=== PATIENT | male | born 1940 | race Caucasian/White ===

== ENCOUNTER 2018-02-05 19:45 | Emergency (ER) | payer OTHER ==
[2018-02-05] MEDS ORDERED: NA CHLORIDE 0.9% 1,000 ML ONE (21:56)
[2018-02-05] MEDS ORDERED: FAMOTIDINE 20 MG/2 ML VIAL IV ONE (21:56)
[2018-02-05] MEDS ORDERED: ONDANSETRON 4 MG/2 ML VIAL ONE (21:56)
[2018-02-05 22:00] LABS: Absolute Lymphocytes (CBC) 0.1 K/uL (0.7-4.9); Absolute Monocytes 0.5 K/uL (0.1-1.3); Basophils % 0.3 % (0-1.3); Eosinophils % 0.1 % (0-4.4); Hematocrit 43.1 % (39.6-49.0); Lymphocytes % 1.4 % (15.3-44.8); MCH 32.6 pg (27.0-35.0); MCV 95.7 fL (80-100); MPV 8.1 fL (7.6-11.3); Monocytes % 6.5 % (3.3-12.3)
[2018-02-05 22:16] LABS: Albumin 3.8 g/dL (3.4-5.0); Bilirubin Direct 0.3 mg/dL (0-0.2); Bilirubin Total 0.8 mg/dL (0.2-1.0); Potassium 4.3 mmol/L (3.5-5.1); Protein, Total 7.3 g/dL (6.4-8.2)
[2018-02-05 23:01] LABS: Blood Morphology Comment NOT SEEN (NOT SEEN); Platelet Estimate ADEQ; Urine White Blood Cell Casts OK
--- NOTE | 2018-02-05 23:51 | ER ---
Nurse's Notes [facility] Name: Monty Og Age: 77 yrs Sex: Male : 1940 Arrival Date: 02/05/2018 Time: 19:47 Bed 8 Private MD: Diagnosis: Acute Vomiting and Diarrhea Presentation: 02/05 19:52 Presenting complaint: Patient states: Vomiting, diarrhea, fever since 1200 today. TMax aj1 99.9. Denies abdominal pain. Reports body aches, nausea. Transition of care: patient was not received from another setting of care. Onset of symptoms was February 05, 2018 at 12:00. Risk Assessment: Do you want to hurt yourself or someone else? Patient reports no desire to harm self or others. Initial Sepsis Screen: Does the patient meet any 2 criteria? No. Patient's initial sepsis screen is negative. Does the patient have a suspected source of infection? No. Patient's initial sepsis screen is negative. Care prior to arrival: None. 19:52 Method Of Arrival: Ambulatory aj1 19:52 Acuity: JACKSON 3 aj1 Triage Assessment: 19:56 General: Appears in no apparent distress. comfortable, Behavior is calm, cooperative, aj1 appropriate for age. Pain: Pain currently is 2 out of 10 on a pain scale. Neuro: Level of Consciousness is awake, alert, obeys commands. Cardiovascular: Patient's skin is warm and dry. Respiratory: Airway is patent Respiratory effort is even, unlabored, Respiratory pattern is regular, symmetrical. GI: Reports diarrhea, nausea, vomiting, Patient currently denies abdominal pain. Historical: - Allergies: 19:56 Bactrim; aj1 - Home Meds: 19:56 Pravachol 20 mg Oral tab 1 tab once daily [Active]; losartan 25 mg oral tab 1 tab once aj1 daily [Active]; - PMHx: 19:56 Hypertension; Hyperlipidemia; aj1 - PSHx: 19:56 Appendectomy; colostomy repair; Hernia repair; Tonsillectomy; shoulder surgery; aj1 - Immunization history:: Flu vaccine is not up to date. - Social history:: Smoking status: Patient/guardian denies using tobacco. - Ebola Screening: : Patient denies travel to an Ebola-affected area in the 21 days before illness onset. - Family history:: not pertinent. - Hospitalizations: : No recent hospitalization is reported. Screenin:37 Abuse screen: Denies threats or abuse. Denies injuries from another. Nutritional ak1 screening: No deficits noted. Tuberculosis screening: No symptoms or risk factors identified. Fall Risk None identified. Assessment: 20:42 General: Appears in no apparent distress. Behavior is calm, cooperative. Neuro: No ak1 deficits noted. Cardiovascular: No deficits noted. Respiratory: No deficits noted. GI: Abdomen is flat, Bowel sounds present X 4 quads. Abd is soft and non tender. : No signs and/or symptoms were reported regarding the genitourinary system. EENT: No signs and/or symptoms were reported regarding the EENT system. Derm: No signs and/or symptoms reported regarding the dermatologic system. Musculoskeletal: No signs and/or symptoms reported regarding the musculoskeletal system. 20:42 Reassessment: pt c/o nausea, diarrhea and chills since this morning. . ak1 Vital Signs: 19:56 BP 138 / 81; Pulse 85; Resp 18; Temp 99.9; Pulse Ox 95% on R/A; Weight 88.45 kg (R); aj1 Height 6 ft. 0 in. (182.88 cm) (R); Pain 2/10; 20:37 BP 154 / 77; Pulse 86; Resp 18; Temp 98.8(O); Pulse Ox 94% on R/A; ak1 22:10 BP 134 / 69; Pulse 74; Resp 18; Pulse Ox 93% on R/A; ak1 23:33 BP 129 / 65; Pulse 73; Resp 16; Temp 98.6(O); Pulse Ox 96% on R/A; ak1 19:56 Body Mass Index 26.45 (88.45 kg, 182.88 cm) aj1 ED Course: 19:47 Patient arrived in ED. al2 19:54 Triage completed. aj1 19:56 Arm band placed on Patient placed in an exam room. aj1 20:30 Inga Del Angel, RN is Primary Nurse. ak1 20:37 Patient has correct armband on for positive identification. Bed in low position. Call ak1 light in reach. Side rails up X 1. Adult w/ patient. Pulse ox on. NIBP on. 21:05 Omer Marinelli MD is Attending Physician. wa 21:46 Flu Sent. ak1 22:02 Inserted saline lock: 20 gauge in right antecubital area, using aseptic technique. ak1 ,using aseptic technique. placed by bryon Blood collected. 23:56 No provider procedures requiring assistance completed. IV discontinued, intact, ak1 bleeding controlled, No redness/swelling at site. Pressure dressing applied. Administered Medications: 21:56 Drug: Zofran 4 mg Route: IVP; Site: right antecubital; ak1 22:06 Follow up: Response: No adverse reaction ak1 21:57 Drug: Pepcid 20 mg Route: IVP; Site: right antecubital; ak1 22:06 Follow up: Response: No adverse reaction ak1 22:06 Drug: NS 0.9% 1000 ml Route: IV; Rate: 1 bolus; Site: right antecubital; ak1 23:48 Follow up: IV Status: Completed infusion ak1 Outcome: 23:50 Discharge ordered by . stanford 23:56 Discharged to home ambulatory, with family. ak1 23:56 Condition: good 23:56 Discharge instructions given to patient, family, Instructed on discharge instructions, follow up and referral plans. no drinking with medication, no driving heavy equipment, medication usage, Demonstrated understanding of instructions, follow-up care, medications, Prescriptions given X 2. 23:59 Patient left the ED. ak1 Signatures: Joanne Zacarias RN RN [email or web address] Inga Del Angel RN RN ak1 Omer Marinelli MD MD wa Love, Chelly mancia
--- NOTE | 2018-02-05 23:51 | EDPHYS ---
Physician Documentation [facility] Name: Monty Og Age: 77 yrs Sex: Male : 1940 Arrival Date: 02/05/2018 Time: 19:47 Bed 8 Private MD: ED Physician Omer Marinelli HPI: 02/06 00:21 This 77 yrs old Male presents to ER via Ambulatory with complaints of Flu wa Symptoms. 00:21 The patient presents to the emergency department with nausea, vomiting, diarrhea. wa Onset: The symptoms/episode began/occurred today. Possible causes: sick contacts, by family, grandson. The symptoms are aggravated by nothing. The symptoms are alleviated by nothing. Associated signs and symptoms: Pertinent positives: diarrhea, nausea, vomiting, Pertinent negatives: abdominal pain. Severity of symptoms: At their worst the symptoms were moderate in the emergency department the symptoms are unchanged. The patient has not experienced similar symptoms in the past. The patient has not recently seen a physician. pt states several family members have had same within this past week. denies abd pain. states stool is brown and non-bloody. denies blood in vomit. Historical: - Allergies: 02/05 19:56 Bactrim; aj1 - Home Meds: 19:56 Pravachol 20 mg Oral tab 1 tab once daily [Active]; losartan 25 mg oral tab 1 tab once aj1 daily [Active]; - PMHx: 19:56 Hypertension; Hyperlipidemia; aj1 - PSHx: 19:56 Appendectomy; colostomy repair; Hernia repair; Tonsillectomy; shoulder surgery; aj1 - Immunization history:: Flu vaccine is not up to date. - Social history:: Smoking status: Patient/guardian denies using tobacco. - Ebola Screening: : Patient denies travel to an Ebola-affected area in the 21 days before illness onset. - Family history:: not pertinent. - Hospitalizations: : No recent hospitalization is reported. ROS: 02/06 00:23 Constitutional: Negative for fever, chills, and weight loss, Eyes: Negative for injury, wa pain, redness, and discharge, ENT: Negative for injury, pain, and discharge, Neck: Negative for injury, pain, and swelling, Cardiovascular: Negative for chest pain, palpitations, and edema, Respiratory: Negative for shortness of breath, cough, wheezing, and pleuritic chest pain, Back: Negative for injury and pain, : Negative for injury, bleeding, discharge, and swelling, MS/Extremity: Negative for injury and deformity, Skin: Negative for injury, rash, and discoloration, Neuro: Negative for headache, weakness, numbness, tingling, and seizure, Psych: Negative for depression, anxiety, suicide ideation, homicidal ideation, and hallucinations. Abdomen/GI: Positive for nausea, vomiting, and diarrhea, Negative for abdominal pain. All other systems are negative. Exam: 00:24 Head/Face: Normocephalic, atraumatic. Eyes: Pupils equal round and reactive to light, wa extra-ocular motions intact. Lids and lashes normal. Conjunctiva and sclera are non-icteric and not injected. Cornea within normal limits. Periorbital areas with no swelling, redness, or edema. ENT: Nares patent. No nasal discharge, no septal abnormalities noted. Tympanic membranes are normal and external auditory canals are clear. Oropharynx with no redness, swelling, or masses, exudates, or evidence of obstruction, uvula midline. Mucous membranes moist. Neck: Trachea midline, no thyromegaly or masses palpated, and no cervical lymphadenopathy. Supple, full range of motion without nuchal rigidity, or vertebral point tenderness. No Meningismus. Chest/axilla: Normal chest wall appearance and motion. Nontender with no deformity. No lesions are appreciated. Cardiovascular: Regular rate and rhythm with a normal S1 and S2. No gallops, murmurs, or rubs. Normal PMI, no JVD. No pulse deficits. Respiratory: Lungs have equal breath sounds bilaterally, clear to auscultation and percussion. No rales, rhonchi or wheezes noted. No increased work of breathing, no retractions or nasal flaring. Abdomen/GI: Soft, non-tender, with normal bowel sounds. No distension or tympany. No guarding or rebound. No evidence of tenderness throughout. Back: No spinal tenderness. No costovertebral tenderness. Full range of motion. Skin: Warm, dry with normal turgor. Normal color with no rashes, no lesions, and no evidence of cellulitis. MS/ Extremity: Pulses equal, no cyanosis. Neurovascular intact. Full, normal range of motion. Neuro: Awake and alert, GCS 15, oriented to person, place, time, and situation. Cranial nerves II-XII grossly intact. Motor strength 5/5 in all extremities. Sensory grossly intact. Cerebellar exam normal. Normal gait. Psych: Awake, alert, with orientation to person, place and time. Behavior, mood, and affect are within normal limits. 00:24 Constitutional: The patient appears in no acute distress, alert, no active vomiting at MD encounter 00:24 Abdomen/GI: Rectal exam: is unremarkable, Stool: brown, guaiac negative. Vital Signs: 02/05 19:56 BP 138 / 81; Pulse 85; Resp 18; Temp 99.9; Pulse Ox 95% on R/A; Weight 88.45 kg (R); aj1 Height 6 ft. 0 in. (182.88 cm) (R); Pain 2/10; 20:37 BP 154 / 77; Pulse 86; Resp 18; Temp 98.8(O); Pulse Ox 94% on R/A; ak1 22:10 BP 134 / 69; Pulse 74; Resp 18; Pulse Ox 93% on R/A; ak1 23:33 BP 129 / 65; Pulse 73; Resp 16; Temp 98.6(O); Pulse Ox 96% on R/A; ak1 19:56 Body Mass Index 26.45 (88.45 kg, 182.88 cm) aj1 MDM: 21:05 Patient medically screened. nd 02/06 00:25 Differential diagnosis: viral gastroenteritis, consider bacterial etiology. pre-formed nd toxins?. Data reviewed: vital signs, nurses notes. Test interpretation: by ED physician or midlevel provider: labs noted for mild hyperglycemia and renal insufficiency. guaiac negative. 00:26 Response to treatment: the patient's symptoms have markedly improved after treatment. nd ED course: zofran, pepcid and fluid hydration done. unable to give stool sample in ED. no vomiting in ED. in the setting of non-bloody stool with negative guaiac, unlikely invasive bacterial etiology. supportive care, close f/u. understood to return for worsening concerns. abd non-tender on exam. 02/05 20:11 Order name: Flu snw 02/05 20:11 Order name: Influenza Screen (A ; Complete Time: 22:53 EDMS 02/05 21:36 Order name: Basic Metabolic Panel; Complete Time: 22:53 wa 02/05 21:36 Order name: CBC with Diff; Complete Time: 00:21 nd 02/05 21:36 Order name: Hepatic Function; Complete Time: 22:53 nd 02/05 21:36 Order name: Lipase; Complete Time: 22:54 nd 02/05 21:36 Order name: IV Saline Lock; Complete Time: 22:00 nd 02/05 23:01 Order name: CBC Smear Scan; Complete Time: 00:21 EDAL 02/05 21:36 Order name: Labs collected and sent; Complete Time: 22:01 nd Administered Medications: 02/05 21:56 Drug: Zofran 4 mg Route: IVP; Site: right antecubital; ak1 22:06 Follow up: Response: No adverse reaction ak 21:57 Drug: Pepcid 20 mg Route: IVP; Site: right antecubital; ak1 22:06 Follow up: Response: No adverse reaction ak 22:06 Drug: NS 0.9% 1000 ml Route: IV; Rate: 1 bolus; Site: right antecubital; ak1 23:48 Follow up: IV Status: Completed infusion ak1 Disposition: 02/05/18 23:50 Discharged to Home. Impression: Acute Vomiting and Diarrhea. - Condition is Stable. - Discharge Instructions: Nausea and Vomiting, Adult, [id number], Diarrhea, Adult, [id number]. - Prescriptions for Zofran 4 mg Oral Tablet - take 1 tablet by ORAL route every 12 hours As needed; 20 tablet. Pepcid 20 mg Oral Tablet - take 1 tablet by ORAL route 2 times per day for 5 days; 10 tablet. - Medication Reconciliation Form, Thank You Letter, Antibiotic Education, Prescription Opioid Use form. - Follow up: Private Physician; When: 1 - 2 days; Reason: Recheck today's complaints, Re-evaluation by your physician. - Problem is new. - Symptoms have improved. - Notes: follow up with your doctor next business day for reevaluation to make sure your illness is improving. return here immediately for rapidly worsening concerns Signatures: Dispatcher [employer] EDJoanne Davis, RN RN aj1 Inga Del Angel RN RN ak1 Omer Marinelli MD MD nd Corrections: (The following items were deleted from the chart) 21:37 21:37 Occult Blood+[id number].BRZ ordered. EDAL EDMS 23:59 23:50 02/05/2018 23:50 Discharged to Home. Impression: Acute Vomiting and Diarrhea. ak1 Condition is Stable. Forms are Medication Reconciliation Form, Thank You Letter, Antibiotic Education, Prescription Opioid Use. Follow up: Private Physician; When: 1 - 2 days; Reason: Recheck today's complaints, Re-evaluation by your physician. Problem is new. Symptoms have improved. wa
[2018-02-06 00:37] VITALS: BP 129/65; TEMP 98.6; O2SAT 96
== END 2018-02-05 23:59 | disposition home or self-care (01) ==
LOC: ER 19:45
DX: R19.7 Diarrhea, unspecified (principal); I10 Essential (primary) hypertension; E78.5 Hyperlipidemia, unspecified; Z88.1 Allergy status to other antibiotic agents
CPT/HCPCS: 36415; 80048; 80076; 83690; 85025; 87804 ×2; 96361; 96374; 96375; 99284; J2405; J7030